=== PATIENT | female | born 1990 | race Hispanic/Latino ===

== ENCOUNTER 2016-05-09 04:30 | Emergency (ER) | payer SELFPAY ==
[~2016-05-09] VITALS: Ht 165.1 cm; Wt 101.3 kg
[~2016-05-09 04:30] MED LIST: COMPLETENATE T1 EACH PO; FEOSOL325 MG PO; FERGON324 MG PO; FLEXERIL10 MG PO; HYDROCODON-ACE1 EAC7 PO; IBUPROFEN800 MG PO; MACROBID100 MG PO; NITROFURANTOIN100 MG PO; VISTARIL25 MG PO; ZITHROMAX250 MG PO
[2016-05-09 05:57] LABS: CHLORIDE 103 mEq/L (99-109); POTASSIUM 3.8 mEq/L (3.7-5.4); SODIUM 135 mEq/L (136-147)
[2016-05-09 05:59] LABS: GLUCOSE 82 mg/dL (70-99)
[2016-05-09 06:00] LABS: ANION GAP 13 MEQ/L (2-14)
[2016-05-09 06:03] LABS: GFR ESTIMATE (CALCULATED) > 59 mL/min/; UREA NITROGEN (BUN) 14 mg/dL (9-23)
[2016-05-09 06:32] LABS: EOSINOPHIL (%) 0.2 % (0-5); IMMATURE GRANULOCYTE (%) 0.4 % (0.0-0.7); IMMATURE GRANULOCYTE COUNT 0.4 K/uL; LYMPHOCYTE COUNT 1.6 K/uL (1.0-2.8); MCH 26.2 PG (29.0-34.0); MCHC 33.2 G/DL (30.0-36.0); MONOCYTE (%) 9.1 % (3-12); MONOCYTE COUNT 0.8 K/uL (0-0.8); NEUTROPHIL (%) 72.9 % (45-76); NEUTROPHIL COUNT 6.7 K/uL (1.8-6.4); RBC DIS.WIDTH-CV 13.7 % (11.8-14.6); RBC DIS.WIDTH-SD 38.8 % (39-53); RED BLOOD COUNT 4.81 M/uL (3.80-5.20); WHITE BLOOD COUNT 9.2 K/uL (4.1-10.2)
[2016-05-09 06:33] LABS: MEAN PLAT.VOLUME 9.8 uM^3 (9.5-12.4); PLATELET COUNT 246 K/uL (156-360)
[2016-05-09] MEDS ORDERED: MOTRIN800 MG PO (06:36)
[2016-05-09] MEDS ORDERED: PERCOCET 5/31 TABLET PO (06:39)
[2016-05-09 06:55] VITALS: BP 141/71
[2016-05-09 07:39] LABS: INTERNAL CONTROL VALID? YES; MONOSPOT (MONONUCLEOSIS SEROL) NEGATIVE
== END 2016-05-09 06:55 | disposition home or self-care (01) ==
LOC: EME 04:30
PROVIDERS: Emergency Medicine
DX: J02.8 Acute pharyngitis due to other specified organisms (principal); B97.89 Other viral agents as the cause of diseases classified elsewhere; M79.1 Myalgia; Z87.891 Personal history of nicotine dependence
CPT/HCPCS: 70360; 70491; 80048; 83605; 84443; 85025; 86308; 87040; 87651 90; 99281; 99284; J1100; J1885; J2405; J7030

== ENCOUNTER 2016-10-09 20:26 | Emergency (ER) | payer OTHER ==
[~2016-10-09] VITALS: Ht 167.6 cm; Wt 94.1 kg
[~2016-10-09 20:26] MED LIST changes: +MOTRIN800 MG PO; +PERCOCET 5/31 TABLET PO
[2016-10-09 21:54] LABS: MCH 27.4 PG (29.0-34.0); MCV 80.6 FL (83-99); MEAN PLAT.VOLUME 9.1 uM^3 (9.5-12.4); PLATELET COUNT 332 K/uL (156-360); RBC DIS.WIDTH-CV 13.8 % (11.8-14.6); RBC DIS.WIDTH-SD 39.7 % (39-53); RED BLOOD COUNT 4.96 M/uL (3.80-5.20); WHITE BLOOD COUNT 16.3 K/uL (4.1-10.2)
[2016-10-09 22:15] LABS: CHLORIDE 107 mEq/L (99-109); POTASSIUM 3.5 mEq/L (3.7-5.4); SODIUM 135 mEq/L (136-147)
[2016-10-09 22:17] LABS: GLUCOSE 86 mg/dL (70-99)
[2016-10-09 22:18] LABS: ANION GAP 11 MEQ/L (2-14)
[2016-10-09 22:19] LABS: TOTAL BILIRUBIN 0.5 mg/dL (0.0-1.0)
[2016-10-09 22:20] LABS: ALKALINE PHOSPHATASE 101 IU/L (3-129)
[2016-10-09 22:21] LABS: GFR ESTIMATE (CALCULATED) > 59 mL/min/
[2016-10-09 22:22] LABS: UREA NITROGEN (BUN) 7 mg/dL (9-23)
[2016-10-09 22:46] LABS: QUANTITATIVE HCG 103201.4 MIU/ML
[2016-10-09 23:03] LABS: ADD MIUA? YES; BILIRUBIN SMALL; BLOOD NEGATIVE; COLOR AMBER ((YELLOW)); GLUCOSE (STRIP) NEGATIVE; KETONES 80; LEUKOCYTES LARGE; NITRITE NEGATIVE; PROTEIN (STRIP) 100; UROBILINOGEN 0.2 MG/DL (0.2-1.0)
[2016-10-09 23:30] LABS: BACTERIA 2+ /HPF; EPITHELIAL CELLS 3+ /HPF; MUCUS 3+ /LPF; UCUL ADDED? YES; WHITE BLOOD CELLS 30-40 /HPF (0-5)
[2016-10-09 23:33] LABS: INTERNAL CONTROL VALID? YES
[2016-10-09 23:45] LABS: LIPASE 8 U/L (1.0-51.0)
[2016-10-10 00:08] LABS: C DIFF TOXIN NEGATIVE (NEGATIVE)
[2016-10-10 00:09] LABS: PROBE CHECK PASS; SPECIMEN PROCESSING CONTROL PASS
[2016-10-10] MEDS ORDERED: ZOFRAN ODT4 MG PO (02:25)
[2016-10-10] MEDS ORDERED: KEFLEX500 MG PO (02:32)
[2016-10-10 02:41] VITALS: BP 132/78
== END 2016-10-10 02:42 | disposition home or self-care (01) ==
LOC: EME 20:26
PROVIDERS: Physician Assistant Medical
DX: O23.12 Infections of bladder in pregnancy, second trimester (principal); O21.0 Mild hyperemesis gravidarum; Z3A.14 14 weeks gestation of pregnancy; O99.342 Other mental disorders complicating pregnancy, second trimester; F32.9 Major depressive disorder, single episode, unspecified; Z87.891 Personal history of nicotine dependence
CPT/HCPCS: 80053; 81003; 83630; 83690; 84702; 85027; 87086; 87493; 87506; 99281; 99284; J2405; J7030

== ENCOUNTER 2017-03-29 20:40 | Outpatient (CLI) | payer OTHER ==
[~2017-03-29] VITALS: Ht 165.1 cm; Wt 97.3 kg
[~2017-03-29 20:40] MED LIST changes: +KEFLEX500 MG PO; +TAMIFLU75 MG PO; +ZOFRAN ODT4 MG PO
[2017-03-29 21:31] VITALS: BP 130/59
[2017-03-29 22:40] LABS: APPEARANCE SL.HAZY ((CLEAR)); BILIRUBIN NEGATIVE; BLOOD NEGATIVE; COLOR YELLOW ((YELLOW)); GLUCOSE (STRIP) NEGATIVE; KETONES 80; LEUKOCYTES MODERATE; NITRITE NEGATIVE; PROTEIN (STRIP) NEGATIVE; SPECIFIC GRAVITY 1.017 (1.000-1.030); UROBILINOGEN 0.2 MG/DL (0.2-1.0)
[2017-03-29 22:46] LABS: BACTERIA 2+ /HPF; EPITHELIAL CELLS 1+ /HPF; MUCUS TRACE /LPF; RED BLOOD CELLS 0-5 /HPF (0-5)
[2017-03-29 22:49] LABS: AMPHETAMINE NEGATIVE (500 ng/mL); BARBITURATES NEGATIVE (200 ng/mL); BENZODIAZEPINES NEGATIVE (150 ng/mL); BUPRENORPHINE NEGATIVE (10 ng/mL); COCAINE NEGATIVE (150 ng/mL); METHADONE NEGATIVE (200 ng/mL); METHAMPHETAMINE NEGATIVE (500 ng/mL); OPIATES (MORPHINE) PRESUMPTIVE POSITIVE (100 ng/mL); OXYCODONE NEGATIVE (100 ng/mL); PHENCYCLIDINE NEGATIVE (25 ng/mL); PROPOXYPHENE NEGATIVE (300 ng/mL); THC CANNABINOIDS NEGATIVE (50 ng/mL); TRICYCLIC ANTIDEPRESSANTS NEGATIVE (300 ng/mL)
[2017-03-29 22:50] LABS: BASOPHIL (%) 0.3 % (0-1); EOSINOPHIL (%) 0 % (0-5); HEMATOCRIT 30.2 % (36.0-46.0); HEMOGLOBIN 10.2 G/DL (11.9-15.5); IMMATURE GRANULOCYTE (%) 0.7 % (0.0-0.7); LYMPHOCYTE (%) 8.3 % (15-42); LYMPHOCYTE COUNT 0.7 K/uL (1.0-2.8); MCH 27.3 PG (29.0-34.0); MCHC 33.8 G/DL (30.0-36.0); MONOCYTE (%) 7.4 % (3-12); MONOCYTE COUNT 0.6 K/uL (0-0.8); NEUTROPHIL (%) 83.3 % (45-76); NEUTROPHIL COUNT 7.2 K/uL (1.8-6.4); PLATELET COUNT 244 K/uL (156-360); RBC DIS.WIDTH-CV 13.4 % (11.8-14.6); RBC DIS.WIDTH-SD 39.3 % (39-53); RED BLOOD COUNT 3.73 M/uL (3.80-5.20); WHITE BLOOD COUNT 8.7 K/uL (4.1-10.2)
[2017-03-29 22:58] LABS: ALBUMIN 3.3 g/dL (3.2-4.8)
[2017-03-29 22:59] LABS: CHLORIDE 102 mEq/L (99-109); POTASSIUM 3.6 mEq/L (3.7-5.4); SODIUM 132 mEq/L (136-147)
[2017-03-29 23:01] LABS: GLUCOSE 105 mg/dL (70-99); TOTAL PROTEIN 6.6 g/dL (6.4-8.3)
[2017-03-29 23:03] LABS: TOTAL BILIRUBIN 0.4 mg/dL (0.0-1.0)
[2017-03-29 23:04] LABS: ALKALINE PHOSPHATASE 143 IU/L (3-129)
[2017-03-29 23:05] LABS: CREATININE 0.7 mg/dL (0.6-1.3); GFR ESTIMATE (CALCULATED) > 59 mL/min/
[2017-03-29 23:06] LABS: AST (GOT) 19 IU/L (2-34); UREA NITROGEN (BUN) 8 mg/dL (9-23)
[2017-03-29 23:08] LABS: ALT (GPT) 11 IU/L (3-49)
[2017-03-30 00:06] VITALS: BP 107/57
== END 2017-03-30 01:45 | disposition home or self-care (01) ==
LOC: LDRP-OP → 2WEST 20:43 → LDRP-OP 05-16 10:30
PROVIDERS: Advanced Practice Midwife
DX: O99.513 Diseases of the respiratory system complicating pregnancy, third trimester (principal); J10.1 Influenza due to other identified influenza virus with other respiratory manifestations; O23.43 Unspecified infection of urinary tract in pregnancy, third trimester; O99.333 Smoking (tobacco) complicating pregnancy, third trimester; Z90.49 Acquired absence of other specified parts of digestive tract; Z3A.37 37 weeks gestation of pregnancy
CPT/HCPCS: 59025; 80053; 81003; 84999; 85025; 87086; 87502; 87651 90; G0378

== ENCOUNTER 2017-04-09 07:46 | Inpatient (IN) | payer OTHER ==
[~2017-04-09] VITALS: Ht 152.4 cm; Wt 94.8 kg
[2017-04-09] VITALS (20 sets, daily range): BP systolic 112–134; BP diastolic 58–79
[2017-04-09] MEDS ORDERED: PRENATAL TABLE1 EAC3 PO (08:23)
[2017-04-09 10:09] LABS: BASOPHIL (%) 0.2 % (0-1); EOSINOPHIL (%) 0.5 % (0-5); EOSINOPHIL COUNT 0.1 K/uL (0-0.3); HEMATOCRIT 34.5 % (36.0-46.0); HEMOGLOBIN 11.4 G/DL (11.9-15.5); IMMATURE GRANULOCYTE (%) 0.7 % (0.0-0.7); LYMPHOCYTE (%) 14.5 % (15-42); LYMPHOCYTE COUNT 2.2 K/uL (1.0-2.8); MCH 27.2 PG (29.0-34.0); MCV 82.3 FL (83-99); MONOCYTE COUNT 0.7 K/uL (0-0.8); NEUTROPHIL (%) 79.1 % (45-76); NEUTROPHIL COUNT 11.8 K/uL (1.8-6.4); RBC DIS.WIDTH-CV 13.6 % (11.8-14.6); RBC DIS.WIDTH-SD 39.9 % (39-53); RED BLOOD COUNT 4.19 M/uL (3.80-5.20); WHITE BLOOD COUNT 14.9 K/uL (4.1-10.2)
[2017-04-09 10:11] LABS: PLATELET COUNT 347 K/uL (156-360)
[2017-04-09 11:51] LABS: BENZODIAZEPINES, URINE SCREEN Negative (200 ng/mL)
[2017-04-10 06:46] LABS: BASOPHIL (%) 0.3 % (0-1); EOSINOPHIL (%) 1.4 % (0-5); EOSINOPHIL COUNT 0.2 K/uL (0-0.3); HEMATOCRIT 28.2 % (36.0-46.0); IMMATURE GRANULOCYTE (%) 0.5 % (0.0-0.7); LYMPHOCYTE (%) 26.7 % (15-42); LYMPHOCYTE COUNT 3.1 K/uL (1.0-2.8); MCH 27.1 PG (29.0-34.0); MCHC 32.6 G/DL (30.0-36.0); MCV 82.9 FL (83-99); MONOCYTE (%) 7.4 % (3-12); MONOCYTE COUNT 0.9 K/uL (0-0.8); NEUTROPHIL (%) 63.7 % (45-76); NEUTROPHIL COUNT 7.5 K/uL (1.8-6.4); PLATELET COUNT 262 K/uL (156-360); RBC DIS.WIDTH-CV 13.7 % (11.8-14.6); WHITE BLOOD COUNT 11.7 K/uL (4.1-10.2)
[2017-04-10 06:53] LABS: HEMOGLOBIN 9.2 G/DL (11.9-15.5)
[2017-04-10 07:14] VITALS: BP 90/44
[2017-04-10 15:58] VITALS: BP 126/63
[2017-04-10 22:42] VITALS: BP 122/60
[2017-04-11 07:42] VITALS: BP 123/64
[2017-04-11 14:51] VITALS: BP 119/70
== END 2017-04-11 18:26 | disposition home or self-care (01) | DRG 775 ==
LOC: LDRP-OP 07:46 → 2WEST 07:47 → LDRP-OP 05-16 02:16
PROVIDERS: Advanced Practice Midwife
DX: O71.82 Other specified trauma to perineum and vulva (principal); O99.02 Anemia complicating childbirth; D50.9 Iron deficiency anemia, unspecified; O69.81X0 Labor and delivery complicated by cord around neck, without compression, not applicable or unspecified; O99.214 Obesity complicating childbirth; E66.01 Morbid (severe) obesity due to excess calories; Z68.41 Body mass index [BMI] 40.0-44.9, adult; Z3A.39 39 weeks gestation of pregnancy; Z37.0 Single live birth; Z87.891 Personal history of nicotine dependence; Z23 Encounter for immunization
CPT/HCPCS: 80306 90; 85025; 90686; C1755; J2405; J3010; J7120